=== PATIENT | male | born 1985 | race African-American/Black ===

== ENCOUNTER 2022-10-05 13:13 | Inpatient (IN) | payer MEDICAID ==
[~2022-10-05] VITALS: Ht 167.6 cm; Wt 54.2 kg
[2022-10-05] MEDS ORDERED: CEFTRIAXONE 1GM PREMIX 50 ML IV ONE (15:00)
[2022-10-05] MEDS ORDERED: SODIUM CHLORIDE 0.9% 1000ML BAG (SEPSIS BOLUS) IV ONE (15:00)
[2022-10-05 15:36] LABS: CLARITY URINE TURBID (CLEAR); COLOR URINE YELLOW (YELLOW); KETONES URINE TRACE (NEGATIVE); LEUKOCYTE ESTERASE URINE 3+ (NEGATIVE); NITRITE URINE NEGATIVE (NEGATIVE); OCCULT BLOOD URINE TRACE (NEGATIVE); PROTEIN URINE 1+ (NEGATIVE); SPECIFIC GRAVITY URINE 1.019 (1.005-1.030)
[2022-10-05 15:40] LABS: EOSINOPHILS % 4.9 % (0.0-5.0); HEMATOCRIT. 47.5 % (42.0-52.0); HEMOGLOBIN. 16.1 g/dL (14.0-18.0); LYMPHOCYTES % 29.2 % (20.0-50.0); MEAN CORPUSCULAR HEMOGLOBIN 31.4 pg (28.0-32.0); MEAN CORPUSCULAR VOLUME 92.4 fL (80.0-94.0); MEAN PLATELET VOLUME 8.5 fl (7.4-10.4); MONOCYTES % 6.9 % (2.0-8.0); PLATELET 269 x1000/uL (130-400); RED BLOOD CELL COUNT 5.14 mill/uL (4.7-6.1); RED CELL DISTRIBUTION WIDTH 13.8 % (11.6-14.6)
[2022-10-05 15:50] LABS: INR 1.3
[2022-10-05 16:02] LABS: CHLORIDE 104 mEq/L (98-107)
[2022-10-05] MEDS ORDERED: MAGNESIUM/ALUMINUM HYDROXIDE/SIMETHICONE 30ML UDC PO PRN (16:30)
[2022-10-05] MEDS ORDERED: HYDROCODONE/ACETAMINOPHEN 5/325MG TABLET PO PRN (16:30)
[2022-10-05] MEDS ORDERED: ONDANSETRON HCL 4MG/2ML INJ IV PRN (16:30)
[2022-10-05] MEDS ORDERED: DOCUSATE SODIUM 100MG CAPSULE PO PRN (16:30)
[2022-10-05] MEDS ORDERED: IPRATROPIUM/ALBUTEROL 0.5-3(2.5)MG/3ML NEB HHN PRN (16:30)
[2022-10-05] MEDS ORDERED: ACETAMINOPHEN 325MG TABLET PO PRN ×2 (16:30)
[2022-10-05] MEDS ORDERED: NA PHOS,M-B/NA PHOS,DI-BA ENEMA 118ML PR PRN (16:30)
[2022-10-05] MEDS ORDERED: CLONIDINE 0.1MG TABLET PO PRN (16:30)
[2022-10-05] MEDS: SODIUM CHLORIDE 0.9% 1,000 ML IV SCH (16:48)
[2022-10-05] MEDS: PANTOPRAZOLE SODIUM 40 MG/VIAL IV SCH (16:48)
[2022-10-05 17:35] LABS: FOLIC ACID (FOLATE) SERUM 8.6 ng/mL (>5.38)
[2022-10-05] MEDS: ENOXAPARIN 40MG/0.4ML SYR SUBCUT SCH (18:31)
[2022-10-05 21:20] VITALS: BP 131/68
[2022-10-05 21:25] VITALS: BP 131/68
[2022-10-05 21:27] LABS: *AMPHETAMINES SCREEN URINE NEGATIVE (NEGATIVE); *BARBITURATES SCREEN URINE NEGATIVE (NEGATIVE); *BENZODIAZEPINES SCREEN URINE NEGATIVE (NEGATIVE); *COCAINE SCREEN URINE NEGATIVE (NEGATIVE); CANNABINOID URINE SCREEN NEGATIVE (NEGATIVE); METHADONE URINE SCREEN NEGATIVE (NEGATIVE); OPIATES URINE SCREEN NEGATIVE (NEGATIVE); PHENCYCLIDINE URINE SCREEN NEGATIVE (NEGATIVE)
[2022-10-06] VITALS: BP 134/87
[2022-10-06 04:00] VITALS: BP 128/79
[2022-10-06 06:13] LABS: BASOPHILS % 0.7 % (0.0-2.0); EOSINOPHILS % 4.3 % (0.0-5.0); HEMATOCRIT. 43.5 % (42.0-52.0); HEMOGLOBIN. 14.8 g/dL (14.0-18.0); LYMPHOCYTES % 27.3 % (20.0-50.0); MEAN CORPUSCULAR HEMOGLOBIN 31.5 pg (28.0-32.0); MEAN CORPUSCULAR VOLUME 92.3 fL (80.0-94.0); MEAN PLATELET VOLUME 8.6 fl (7.4-10.4); MONOCYTES % 5.2 % (2.0-8.0); NEUTROPHILS % 62.5 % (40.0-76.0); PLATELET 225 x1000/uL (130-400); RED BLOOD CELL COUNT 4.71 mill/uL (4.7-6.1); RED CELL DISTRIBUTION WIDTH 13.4 % (11.6-14.6)
[2022-10-06] MEDS ORDERED: ALBU6.7H15 IH (06:43)
[2022-10-06 06:58] LABS: CHLORIDE 106 mEq/L (98-107)
[2022-10-06 08:00] VITALS: BP 115/68
[2022-10-06] MEDS: PANTOPRAZOLE SODIUM 40 MG/VIAL IV SCH (08:06)
[2022-10-06] MEDS: DOCUSATE SODIUM 100MG CAPSULE PO SCH ×2 (08:06→17:34)
[2022-10-06 12:00] VITALS: BP 120/76
[2022-10-06] MEDS: SODIUM CHLORIDE 0.9% 1,000 ML IV SCH (13:39)
[2022-10-06] MEDS ORDERED: CEFTRIAXONE 1GM PREMIX 50 ML IV SCH ×2 (15:00→16:00)
[2022-10-06 16:00] VITALS: BP 118/72
[2022-10-06] MEDS ORDERED: ALBUTEROL (0.083%) 2.5MG/3ML NEB HHN PRN (17:15)
[2022-10-06] MEDS ORDERED: IPRATROPIUM BROMIDE (0.02%) 0.5MG/2.5ML NEB HHN PRN (17:15)
[2022-10-06] MEDS ORDERED: NALOXONE HCL 0.4MG/ML VIAL IV PRN (17:15)
[2022-10-06] MEDS: ENOXAPARIN 40MG/0.4ML SYR SUBCUT SCH (17:34)
[2022-10-06 20:00] VITALS: BP 109/70
[2022-10-07] VITALS: BP 120/69
[2022-10-07 04:00] VITALS: BP 109/73
[2022-10-07 06:34] LABS: BASOPHILS % 0.6 % (0.0-2.0); EOSINOPHILS % 6.2 % (0.0-5.0); HEMATOCRIT. 43.2 % (42.0-52.0); LYMPHOCYTES % 31.6 % (20.0-50.0); MEAN CORPUSCULAR HEMOGLOBIN 31.9 pg (28.0-32.0); MEAN CORPUSCULAR VOLUME 92.1 fL (80.0-94.0); MEAN PLATELET VOLUME 8.6 fl (7.4-10.4); MONOCYTES % 6.5 % (2.0-8.0); NEUTROPHILS % 55.1 % (40.0-76.0); PLATELET 238 x1000/uL (130-400); RED BLOOD CELL COUNT 4.69 mill/uL (4.7-6.1); RED CELL DISTRIBUTION WIDTH 13.5 % (11.6-14.6)
[2022-10-07 07:01] LABS: CHLORIDE 108 mEq/L (98-107)
[2022-10-07] MEDS: DOCUSATE SODIUM 100MG CAPSULE PO SCH (08:58)
[2022-10-07] MEDS: SODIUM CHLORIDE 0.9% 1,000 ML IV SCH (08:59)
[2022-10-07] MEDS ORDERED: FAMOTIDINE 20MG TABLET PO SCH (09:00)
[2022-10-07 12:11] VITALS: BP 116/67
== END 2022-10-07 15:45 | disposition home or self-care (01) | DRG 720 ==
LOC: ER 13:13 → 7EST 15:53 → EDBEDREQ 15:56 → EDBEDREQTM 15:56 → EDBEDREQSVC 20:13 → ENRESERV 20:49
PROVIDERS: ADMIT Internal Medicine; ATTEND Internal Medicine
DX: A41.9 Sepsis, unspecified organism (principal); E46 Unspecified protein-calorie malnutrition; E78.5 Hyperlipidemia, unspecified; N39.0 Urinary tract infection, site not specified; N40.0 Benign prostatic hyperplasia without lower urinary tract symptoms; Z68.1 Body mass index [BMI] 19.9 or less, adult; G80.9 Cerebral palsy, unspecified; J45.909 Unspecified asthma, uncomplicated; N32.89 Other specified disorders of bladder; Z99.3 Dependence on wheelchair
CPT/HCPCS: 36415; 71045; 74176; 76770; 76872; 80048; 80053; 80061; 80305; 81003; 82607; 82746; 83605; 84145; 84153; 85025; 85379; 92610; 93005; 93970; 97162; 99285; C9113; J0696; J1650; J7030; G0103

== ENCOUNTER 2023-07-02 14:25 | Inpatient (IN) | payer MEDICAID ==
[2023-07-02] VITALS (13 sets, daily range): BP systolic 95–121; BP diastolic 64–83; PULSE 85–118; RESP 16; TEMP 98.4–98.7
[~2023-07-02] VITALS: Ht 170.2 cm; Wt 59.2 kg
[~2023-07-02 14:25] MED LIST: ALBU6.7H15 IH
[2023-07-02] MEDS ORDERED: METHYLPREDNISOLONE SOD SUCC 125MG/2ML (ACT-O-VIAL) IV STA (14:48)
[2023-07-02] MEDS ORDERED: IPRATROPIUM BROMIDE (0.02%) 0.5MG/2.5ML NEB HHN STA (14:48)
[2023-07-02] MEDS ORDERED: ALBUTEROL (0.083%) 2.5MG/3ML NEB HHN STA (14:48)
[2023-07-02] MEDS ORDERED: FENTANYL 2500MCG/250ML PMX 250 ML IV ONE (15:00)
[2023-07-02] MEDS ORDERED: SODIUM CHLORIDE 0.9% 1000ML BAG (SEPSIS BOLUS) IV ONE (15:00)
[2023-07-02] MEDS ORDERED: PROPOFOL 10MG/ML 100ML 100 ML IV SCH (15:00)
[2023-07-02] MEDS ORDERED: FENTANYL CITRATE/PF 50MCG/ML 2ML VIAL IM ONE (15:00)
[2023-07-02] MEDS ORDERED: PIPERACILLIN/TAZ 3.375G PREMIX 50 ML IV ONE (15:00)
[2023-07-02] MEDS ORDERED: VANCOMYCIN 1G PREMIX 200 ML IV ONE (15:00)
[2023-07-02 15:03] LABS: BASOPHILS % 0.4 % (0.0-2.0); EOSINOPHILS % 0.3 % (0.0-5.0); HEMATOCRIT. 44.5 % (42.0-52.0); HEMOGLOBIN. 14.7 g/dL (14.0-18.0); LYMPHOCYTES % 12.4 % (20.0-50.0); MEAN CORPUSCULAR HEMOGLOBIN 30.7 pg (28.0-32.0); MEAN CORPUSCULAR VOLUME 93.3 fL (80.0-94.0); MEAN PLATELET VOLUME 6.8 fl (7.4-10.4); MONOCYTES % 10.2 % (2.0-8.0); NEUTROPHILS % 76.7 % (40.0-76.0); PLATELET 321 x1000/uL (130-400); RED BLOOD CELL COUNT 4.77 mill/uL (4.7-6.1); RED CELL DISTRIBUTION WIDTH 13.9 % (11.6-14.6); WHITE BLOOD COUNT 12.6 x1000/uL (4.5-11.0)
[2023-07-02 15:16] LABS: INR 1.3; PARTIAL THROMBOPLASTIN TIME 31.3 sec (23.4-31.0); PROTHROMBIN TIME 13.9 sec (9.6-11.0)
[2023-07-02 15:34] LABS: LACTIC ACID 2.9 mmol/L (0.4-2.0)
[2023-07-02 15:35] LABS: ALANINE AMINOTRANSFERASE 165 IU/L (10-49); ALBUMIN 4.1 g/dL (3.2-4.8); ASPARTATE AMINOTRANSFERASE 163 IU/L (<34); BILIRUBIN TOTAL 0.4 mg/dL (0.1-1.0); CALCIUM 8.4 mg/dL (8.7-10.4); CARBON DIOXIDE 39 mEq/L (21-32); CHLORIDE 87 mEq/L (98-107); CREATININE 0.9 mg/dL (0.6-1.3); GLUCOSE 158 mg/dL (70-105); PROTEIN TOTAL 6.9 g/dL (6.0-8.3); SODIUM 126 mEq/L (136-145); UREA NITROGEN BLOOD 8 mg/dL (9-23)
[2023-07-02 15:37] LABS: ETHANOL BLOOD < 10 mg/dL (<10); POTASSIUM 7.9 mEq/L (3.5-5.1); TROPONIN I HIGH SENSITIVITY 632 ng/L (3.0-53)
[2023-07-02] MEDS ORDERED: SODIUM BICARBONATE 8.4% 1 MEQ/ML 50ML SYR IV ONE (15:45)
[2023-07-02] MEDS ORDERED: ASPIRIN 300MG SUPP PR ONE (15:45)
[2023-07-02] MEDS ORDERED: INSULIN REGULAR (HUMULIN R) 300UNITS/3ML VIAL IV ONE (15:45)
[2023-07-02] MEDS ORDERED: CALCIUM CHLORIDE 1GM/10ML SYR IV ONE (15:45)
[2023-07-02] MEDS ORDERED: ALBUTEROL (0.083%) 2.5MG/3ML NEB HHN ONE (15:45)
[2023-07-02] MEDS ORDERED: DEXTROSE 50% WATER 50ML SYRINGE IV ONE (15:45)
[2023-07-02 16:08] LABS: BG BASE EXCESS 0.4 mmol/L (-2.0-2.0); BG DEOXYHEMOGLOBIN 0.4 % (0.0-5.0); BG FRACTION INSPIRED OXYGEN 100; BG HCO3 ACT 27.7 mmol/L (22.0-26.0); BG METHEMOGLOBIN 0.3 % (0.0-1.5); BG OXYGEN SATURATION 99.6 % (92.0-98.5); BG OXYHEMOGLOBIN 99.3 % (94.0-97.0); BG PCO2 56.4 mmHg (35.0-45.0); BG PH 7.309 (7.350-7.450); BG PO2 475.8 mmHg (75.0-100.0); BG SAMPLE SITE LEFT RADIAL; BG VENT MODE VENT - AC/VC
[2023-07-02] MEDS: FENTANYL CITRATE 2,500 MCG in SODIUM CHLORIDE 0.9% 200 ML IV PRN ×2 (16:12→16:23)
[2023-07-02] MEDS ORDERED: MIDAZOLAM HCL 5 MG/5 ML VIAL IV ONE (16:15)
[2023-07-02 16:37] LABS: CLARITY URINE CLOUDY (CLEAR); COLOR URINE YELLOW (YELLOW); GLUCOSE URINE 1+ (NEGATIVE); KETONES URINE NEGATIVE (NEGATIVE); LEUKOCYTE ESTERASE URINE NEGATIVE (NEGATIVE); NITRITE URINE NEGATIVE (NEGATIVE); OCCULT BLOOD URINE 3+ (NEGATIVE); PH URINE 6.5 (4.5-8.0); PROTEIN URINE 3+ (NEGATIVE); SPECIFIC GRAVITY URINE 1.026 (1.005-1.030)
[2023-07-02 16:56] LABS: BACTERIA URINE 1+; RBC URINE 15-25 /hpf (0-2); SQUAMOUS EPITHELIAL CELL URINE 1+ /lpf (RARE/1+); WBC URINE 0-2 /hpf (0-2)
[2023-07-02 16:57] LABS: YEAST URINE RARE
[2023-07-02 16:58] LABS: COARSE GRANULAR CASTS URINE 0-5 /lpf
[2023-07-02] MEDS ORDERED: MORPHINE SULFATE 2 MG/ML CPJ (NOT FOR IM USE) IV PRN (17:00)
[2023-07-02] MEDS ORDERED: DOCUSATE SODIUM 100MG CAPSULE PO PRN (17:00)
[2023-07-02] MEDS ORDERED: MAGNESIUM/ALUMINUM HYDROXIDE/SIMETHICONE 30ML UDC PO PRN (17:00)
[2023-07-02] MEDS ORDERED: CLONIDINE 0.1MG TABLET PO PRN (17:00)
[2023-07-02] MEDS ORDERED: ONDANSETRON HCL 4MG/2ML INJ IV PRN (17:00)
[2023-07-02] MEDS ORDERED: GUAIFENESIN 200MG/10ML SUGAR FREE UDC PO PRN (17:00)
[2023-07-02 17:13] LABS: *AMPHETAMINES SCREEN URINE NEGATIVE (NEGATIVE); *BARBITURATES SCREEN URINE NEGATIVE (NEGATIVE); *BENZODIAZEPINES SCREEN URINE PRESUMPTIVE POSITIVE (NEGATIVE); *COCAINE SCREEN URINE NEGATIVE (NEGATIVE); CANNABINOID URINE SCREEN NEGATIVE (NEGATIVE); ECSTASY MDMA SCREEN URINE NEGATIVE (NEGATIVE); METHADONE URINE SCREEN Neg (NEGATIVE); OPIATES URINE SCREEN NEGATIVE (NEGATIVE); PHENCYCLIDINE URINE SCREEN NEGATIVE (NEGATIVE)
[2023-07-02 17:24] LABS: ALANINE AMINOTRANSFERASE 178 IU/L (10-49); ALBUMIN 3.4 g/dL (3.2-4.8); ASPARTATE AMINOTRANSFERASE 188 IU/L (<34); CARBON DIOXIDE 36 mEq/L (21-32); CHLORIDE 94 mEq/L (98-107); CREATININE 0.8 mg/dL (0.6-1.3); GLUCOSE 154 mg/dL (70-105); POTASSIUM 4.2 mEq/L (3.5-5.1); PROTEIN TOTAL 5.8 g/dL (6.0-8.3); SODIUM 132 mEq/L (136-145); UREA NITROGEN BLOOD 9 mg/dL (9-23)
[2023-07-02 17:27] LABS: BILIRUBIN TOTAL 1.5 mg/dL (0.1-1.0)
[2023-07-02 17:28] LABS: TROPONIN I HIGH SENSITIVITY 1732 ng/L (3.0-53)
[2023-07-02] MEDS ORDERED: NALOXONE HCL 0.4MG/ML VIAL IV PRN (17:30)
[2023-07-02] MEDS ORDERED: VANCOMYCIN 1G PREMIX 200 ML IV SCH (17:30)
[2023-07-02] MEDS ORDERED: IBUPROFEN 600MG TABLET PO SCH (18:00)
[2023-07-02] MEDS ORDERED: LEVETIRACETAM 500MG PREMIX 100 ML IV SCH (19:00)
[2023-07-02] MEDS ORDERED: NOREPINEPHRINE 8MG/250ML PMX 250 ML IV PRN (20:30)
[2023-07-02] MEDS ORDERED: MIDAZOLAM HCL 100 MG in SODIUM CHLORIDE 0.9% 80 ML IV PRN (20:30)
[2023-07-02] MEDS: IPRATROPIUM/ALBUTEROL 0.5-3(2.5)MG/3ML NEB HHN SCH ×2 (20:33→23:54)
[2023-07-02] MEDS: PROPOFOL 10MG/ML 100ML 100 ML IV PRN (20:57)
[2023-07-02] MEDS: LEVETIRACETAM 500MG PREMIX 100 ML IV SCH ×2 (21:00→21:53)
[2023-07-02] MEDS: ENOXAPARIN 40MG/0.4ML SYR SUBCUT SCH (21:01)
[2023-07-02] MEDS: IBUPROFEN 600MG TABLET PO SCH (21:02)
[2023-07-02] MEDS: METHYLPREDNISOLONE SOD SUCC 40MG/ML (ACT-O-VIAL) IV SCH (21:09)
[2023-07-02] MEDS: SODIUM CHLORIDE 0.9% 1,000 ML IV SCH (21:09)
[2023-07-02] MEDS: VANCOMYCIN 1G PREMIX 200 ML IV SCH (22:01)
[2023-07-02 22:10] LABS: TROPONIN I HIGH SENSITIVITY 1485 ng/L (3.0-53)
[2023-07-02] MEDS: PIPERACILLIN/TAZOBACTAM 3.375 G in DEXTROSE 5% WATER 50 ML IV SCH (23:23)
[2023-07-03] VITALS (92 sets, daily range): BP systolic 95–128; BP diastolic 53–83; PULSE 74–119; RESP 12–23; TEMP 98.8–101
[2023-07-03] MEDS: METHYLPREDNISOLONE SOD SUCC 40MG/ML (ACT-O-VIAL) IV SCH ×3 (01:35→16:05)
[2023-07-03] MEDS: ACETAMINOPHEN 650MG/20.3ML UDC PO PRN ×2 (03:09→08:06)
[2023-07-03] MEDS: SODIUM CHLORIDE 0.9% 1,000 ML IV SCH ×2 (03:09→12:53)
[2023-07-03] MEDS: PROPOFOL 10MG/ML 100ML 100 ML IV PRN ×3 (04:38→22:49)
[2023-07-03] MEDS: VANCOMYCIN 1G PREMIX 200 ML IV SCH ×3 (04:41→21:21)
[2023-07-03 05:33] LABS: HEMATOCRIT. 40.9 % (42.0-52.0); HEMOGLOBIN. 13.5 g/dL (14.0-18.0); MEAN CORPUSCULAR HEMOGLOBIN 31.4 pg (28.0-32.0); MEAN PLATELET VOLUME 7.4 fl (7.4-10.4); PLATELET 299 x1000/uL (130-400); RED CELL DISTRIBUTION WIDTH 13.8 % (11.6-14.6); WHITE BLOOD COUNT 12.4 x1000/uL (4.5-11.0)
[2023-07-03 05:38] LABS: ALANINE AMINOTRANSFERASE 159 IU/L (10-49); ALBUMIN 3.7 g/dL (3.2-4.8); ASPARTATE AMINOTRANSFERASE 136 IU/L (<34); BILIRUBIN TOTAL 0.6 mg/dL (0.1-1.0); CALCIUM 9.2 mg/dL (8.7-10.4); CARBON DIOXIDE 26 mEq/L (21-32); CHLORIDE 93 mEq/L (98-107); CHOLESTEROL 103 mg/dL (<200); CREATININE 0.7 mg/dL (0.6-1.3); GLUCOSE 151 mg/dL (70-105); HDL CHOLESTEROL 57 mg/dL (>55); LDL CHOLESTEROL 46 mg/dL (5-100); POTASSIUM 4.1 mEq/L (3.5-5.1); PROTEIN TOTAL 5.8 g/dL (6.0-8.3); SODIUM 132 mEq/L (136-145); T4 FREE 1.02 ng/dL (0.89-1.76); THYROID STIMULATING HORMONE 1.39 uIU/mL (0.55-4.78); TRIGLYCERIDE 73 mg/dL (0-150); UREA NITROGEN BLOOD 9 mg/dL (9-23)
[2023-07-03] MEDS: IBUPROFEN 600MG TABLET PO SCH ×2 (06:35→14:00)
[2023-07-03] MEDS: PIPERACILLIN/TAZOBACTAM 3.375 G in DEXTROSE 5% WATER 50 ML IV SCH ×3 (06:35→22:49)
[2023-07-03 06:37] LABS: DIFFERENTIAL COMMENT 1
[2023-07-03] MEDS: IPRATROPIUM/ALBUTEROL 0.5-3(2.5)MG/3ML NEB HHN SCH ×3 (08:05→21:39)
[2023-07-03] MEDS: ASPIRIN 81MG EC TABLET PO SCH (08:06)
[2023-07-03] MEDS: LEVETIRACETAM 500MG PREMIX 100 ML IV SCH ×2 (08:18→21:00)
[2023-07-03 10:18] LABS: BG BASE EXCESS 3.3 mmol/L (-2.0-2.0); BG CARBOXYHEMOGLOBIN 0.2 % (0.5-1.5); BG DEOXYHEMOGLOBIN 0.8 % (0.0-5.0); BG FRACTION INSPIRED OXYGEN 50; BG HCO3 ACT 27.7 mmol/L (22.0-26.0); BG METHEMOGLOBIN 0.3 % (0.0-1.5); BG OXYGEN SATURATION 99.2 % (92.0-98.5); BG OXYHEMOGLOBIN 98.7 % (94.0-97.0); BG PCO2 41.3 mmHg (35.0-45.0); BG PH 7.444 (7.350-7.450); BG PO2 202.8 mmHg (75.0-100.0); BG SAMPLE SITE RIGHT RADIAL; BG TOTAL HEMOGLOBIN 13.9 g/dL (12.0-18.0); BG VENT MODE VENT - AC/VC
[2023-07-03 13:20] LABS: PLATELET ESTIMATE NORMAL
[2023-07-03] MEDS ORDERED: PROPOFOL 10MG/ML 100ML 100 ML IV PRN (14:45)
[2023-07-03] MEDS: ENOXAPARIN 40MG/0.4ML SYR SUBCUT SCH (16:05)
[2023-07-03] MEDS: COLCHICINE 0.6MG TABLET PO SCH ×2 (16:06→21:21)
[2023-07-03] MEDS: FAMOTIDINE 20MG/2ML VIAL IV SCH (21:21)
[2023-07-04] VITALS (74 sets, daily range): BP systolic 105–141; BP diastolic 59–100; PULSE 62–165; RESP 8–19; TEMP 98.7–99.5
[2023-07-04] MEDS: SODIUM CHLORIDE 0.9% 1,000 ML IV SCH ×3 (01:00→19:01)
[2023-07-04] MEDS: IPRATROPIUM/ALBUTEROL 0.5-3(2.5)MG/3ML NEB HHN SCH ×4 (01:06→22:25)
[2023-07-04] MEDS: METHYLPREDNISOLONE SOD SUCC 40MG/ML (ACT-O-VIAL) IV SCH ×3 (01:34→17:03)
[2023-07-04] MEDS: PIPERACILLIN/TAZOBACTAM 3.375 G in DEXTROSE 5% WATER 50 ML IV SCH ×3 (05:31→22:04)
[2023-07-04] MEDS: PROPOFOL 10MG/ML 100ML 100 ML IV PRN (05:37)
[2023-07-04 05:58] LABS: HEMATOCRIT. 38.8 % (42.0-52.0); HEMOGLOBIN. 12.9 g/dL (14.0-18.0); MEAN CORPUSCULAR HEMOGLOBIN 31.4 pg (28.0-32.0); MEAN CORPUSCULAR HGB CONC 33.2 g/dL (31.0-37.0); MEAN CORPUSCULAR VOLUME 94.6 fL (80.0-94.0); MEAN PLATELET VOLUME 7.2 fl (7.4-10.4); PLATELET 258 x1000/uL (130-400); RED CELL DISTRIBUTION WIDTH 13.9 % (11.6-14.6); WHITE BLOOD COUNT 13.5 x1000/uL (4.5-11.0)
[2023-07-04 06:08] LABS: ALANINE AMINOTRANSFERASE 115 IU/L (10-49); ALBUMIN 3.5 g/dL (3.2-4.8); ASPARTATE AMINOTRANSFERASE 133 IU/L (<34); BILIRUBIN TOTAL 0.6 mg/dL (0.1-1.0); CALCIUM 8.7 mg/dL (8.7-10.4); CARBON DIOXIDE 32 mEq/L (21-32); CHLORIDE 105 mEq/L (98-107); CREATININE 0.5 mg/dL (0.6-1.3); GLUCOSE 102 mg/dL (70-105); POTASSIUM 3.6 mEq/L (3.5-5.1); PROTEIN TOTAL 5.4 g/dL (6.0-8.3); SODIUM 141 mEq/L (136-145); TRIGLYCERIDE 177 mg/dL (0-150); UREA NITROGEN BLOOD 8 mg/dL (9-23)
[2023-07-04] MEDS: VANCOMYCIN 1G PREMIX 200 ML IV SCH ×3 (06:59→22:04)
[2023-07-04 07:05] LABS: DIFFERENTIAL COMMENT 1
[2023-07-04] MEDS: LEVETIRACETAM 500MG PREMIX 100 ML IV SCH ×2 (09:08→22:04)
[2023-07-04] MEDS: ASPIRIN 81MG EC TABLET PO SCH (09:09)
[2023-07-04] MEDS: FAMOTIDINE 20MG/2ML VIAL IV SCH ×2 (09:09→22:03)
[2023-07-04] MEDS: COLCHICINE 0.6MG TABLET PO SCH ×2 (09:09→22:03)
[2023-07-04] MEDS ORDERED: LIDOCAINE HCL 1% 10 MG/ML 10ML VIAL ONE (09:15)
[2023-07-04 10:24] LABS: PLATELET ESTIMATE NORMAL
[2023-07-04 10:36] LABS: ERYTHROCYTE SEDIMENTATION RATE 13 mm/hr (0-15)
[2023-07-04] MEDS: IBUPROFEN 600MG TABLET PO SCH (14:00)
[2023-07-04] MEDS: ENOXAPARIN 40MG/0.4ML SYR SUBCUT SCH (17:04)
[2023-07-04] MEDS ORDERED: AMIODARONE 150MG/100ML PREMIX 100 ML IV NR (17:45)
[2023-07-04] MEDS ORDERED: DILTIAZEM HCL 5MG/ML 5ML VIAL IV NR (17:56)
[2023-07-04] MEDS ORDERED: AMIODARONE HCL 900 MG in DEXT 5% WATER 482 ML IV PRN (18:15)
[2023-07-05] VITALS (98 sets, daily range): BP systolic 104–139; BP diastolic 52–90; PULSE 61–94; RESP 0–22; TEMP 97.8–98.9; O2SAT 98–99
[2023-07-05] MEDS: IPRATROPIUM/ALBUTEROL 0.5-3(2.5)MG/3ML NEB HHN SCH ×4 (01:58→20:20)
[2023-07-05] MEDS: METHYLPREDNISOLONE SOD SUCC 40MG/ML (ACT-O-VIAL) IV SCH ×3 (03:08→16:51)
[2023-07-05] MEDS: SODIUM CHLORIDE 0.9% 1,000 ML IV SCH (05:00)
[2023-07-05] MEDS: PIPERACILLIN/TAZOBACTAM 3.375 G in DEXTROSE 5% WATER 50 ML IV SCH ×3 (06:00→21:13)
[2023-07-05] MEDS: VANCOMYCIN 1G PREMIX 200 ML IV SCH ×3 (06:00→21:12)
[2023-07-05] MEDS: IBUPROFEN 600MG TABLET PO SCH ×2 (06:00→14:49)
[2023-07-05 06:05] LABS: BASOPHILS % 0.1 % (0.0-2.0); HEMATOCRIT. 38.4 % (42.0-52.0); HEMOGLOBIN. 12.6 g/dL (14.0-18.0); LYMPHOCYTES % 14.4 % (20.0-50.0); MEAN CORPUSCULAR HEMOGLOBIN 30.7 pg (28.0-32.0); MEAN CORPUSCULAR HGB CONC 32.9 g/dL (31.0-37.0); MEAN CORPUSCULAR VOLUME 93.1 fL (80.0-94.0); MEAN PLATELET VOLUME 7.1 fl (7.4-10.4); MONOCYTES % 7.7 % (2.0-8.0); NEUTROPHILS % 77.8 % (40.0-76.0); PLATELET 235 x1000/uL (130-400); RED BLOOD CELL COUNT 4.12 mill/uL (4.7-6.1); WHITE BLOOD COUNT 11.9 x1000/uL (4.5-11.0)
[2023-07-05 06:45] LABS: ALANINE AMINOTRANSFERASE 91 IU/L (10-49); ALBUMIN 3.4 g/dL (3.2-4.8); ASPARTATE AMINOTRANSFERASE 85 IU/L (<34); BILIRUBIN TOTAL 0.8 mg/dL (0.1-1.0); CALCIUM 8.5 mg/dL (8.7-10.4); CARBON DIOXIDE 30 mEq/L (21-32); CHLORIDE 107 mEq/L (98-107); CREATININE 0.5 mg/dL (0.6-1.3); GLUCOSE 118 mg/dL (70-105); POTASSIUM 3.4 mEq/L (3.5-5.1); PROTEIN TOTAL 5.7 g/dL (6.0-8.3); SODIUM 143 mEq/L (136-145); UREA NITROGEN BLOOD 11 mg/dL (9-23)
[2023-07-05] MEDS ORDERED: KCL 20MEQ/100ML PREMIX 100 ML IV NR (08:00)
[2023-07-05] MEDS: ASPIRIN 81MG EC TABLET PO SCH (08:07)
[2023-07-05] MEDS: COLCHICINE 0.6MG TABLET PO SCH ×2 (08:07→21:12)
[2023-07-05] MEDS: FAMOTIDINE 20MG/2ML VIAL IV SCH ×2 (08:07→21:12)
[2023-07-05] MEDS: LEVETIRACETAM 500MG PREMIX 100 ML IV SCH ×2 (08:07→21:12)
[2023-07-05 11:14] LABS: BG BASE EXCESS 2.1 mmol/L (-2.0-2.0); BG CARBOXYHEMOGLOBIN 0.1 % (0.5-1.5); BG DEOXYHEMOGLOBIN 0.8 % (0.0-5.0); BG FRACTION INSPIRED OXYGEN 40; BG HCO3 ACT 23.3 mmol/L (22.0-26.0); BG METHEMOGLOBIN 0.3 % (0.0-1.5); BG OXYGEN SATURATION 99.2 % (92.0-98.5); BG OXYHEMOGLOBIN 98.8 % (94.0-97.0); BG PCO2 27.4 mmHg (35.0-45.0); BG PH 7.547 (7.350-7.450); BG PO2 185.4 mmHg (75.0-100.0); BG SAMPLE SITE LEFT RADIAL; BG TOTAL HEMOGLOBIN 14.3 g/dL (12.0-18.0); BG VENT MODE VENT - CPAP
[2023-07-05] MEDS: ENOXAPARIN 40MG/0.4ML SYR SUBCUT SCH (16:50)
[2023-07-06] VITALS (38 sets, daily range): BP systolic 103–140; BP diastolic 59–91; PULSE 65–94; RESP 12–26; TEMP 97.2–99; O2SAT 96–99
[2023-07-06] MEDS: METHYLPREDNISOLONE SOD SUCC 40MG/ML (ACT-O-VIAL) IV SCH ×3 (01:10→16:17)
[2023-07-06] MEDS: IPRATROPIUM/ALBUTEROL 0.5-3(2.5)MG/3ML NEB HHN SCH ×4 (02:24→21:18)
[2023-07-06 05:29] LABS: HEMATOCRIT. 40.8 % (42.0-52.0); HEMOGLOBIN. 13.4 g/dL (14.0-18.0); MEAN CORPUSCULAR HEMOGLOBIN 30.9 pg (28.0-32.0); MEAN CORPUSCULAR HGB CONC 32.9 g/dL (31.0-37.0); MEAN PLATELET VOLUME 7.4 fl (7.4-10.4); PLATELET 257 x1000/uL (130-400); RED BLOOD CELL COUNT 4.34 mill/uL (4.7-6.1); RED CELL DISTRIBUTION WIDTH 13.7 % (11.6-14.6); WHITE BLOOD COUNT 10.5 x1000/uL (4.5-11.0)
[2023-07-06] MEDS: PIPERACILLIN/TAZOBACTAM 3.375 G in DEXTROSE 5% WATER 50 ML IV SCH ×3 (06:07→22:28)
[2023-07-06] MEDS: VANCOMYCIN 1G PREMIX 200 ML IV SCH ×3 (06:08→22:28)
[2023-07-06 06:20] LABS: ALANINE AMINOTRANSFERASE 79 IU/L (10-49); ALBUMIN 3.6 g/dL (3.2-4.8); ASPARTATE AMINOTRANSFERASE 49 IU/L (<34); BILIRUBIN TOTAL 0.6 mg/dL (0.1-1.0); CALCIUM 8.6 mg/dL (8.7-10.4); CARBON DIOXIDE 34 mEq/L (21-32); CHLORIDE 105 mEq/L (98-107); CREATININE 0.4 mg/dL (0.6-1.3); GLUCOSE 109 mg/dL (70-105); POTASSIUM 3.8 mEq/L (3.5-5.1); PROTEIN TOTAL 6.2 g/dL (6.0-8.3); SODIUM 142 mEq/L (136-145); UREA NITROGEN BLOOD 8 mg/dL (9-23); VANCOMYCIN TROUGH 14.8 ug/mL (5.0-10.0)
[2023-07-06 07:21] LABS: DIFFERENTIAL COMMENT 1
[2023-07-06] MEDS: LEVETIRACETAM 500MG PREMIX 100 ML IV SCH ×2 (08:25→21:44)
[2023-07-06] MEDS: COLCHICINE 0.6MG TABLET PO SCH ×2 (08:26→20:07)
[2023-07-06] MEDS: FAMOTIDINE 20MG/2ML VIAL IV SCH ×2 (08:26→20:07)
[2023-07-06] MEDS: ASPIRIN 81MG EC TABLET PO SCH (08:26)
[2023-07-06] MEDS ORDERED: FLUT1DIS3 INH (10:49)
[2023-07-06] MEDS ORDERED: IPRA3AMP9 NEB (10:49)
[2023-07-06] MEDS: IBUPROFEN 600MG TABLET PO SCH (13:54)
[2023-07-06] MEDS: BUDESONIDE 0.5MG/2ML NEB HHN SCH (14:30)
[2023-07-06] MEDS: ENOXAPARIN 40MG/0.4ML SYR SUBCUT SCH (16:17)
[2023-07-06 17:19] LABS: PLATELET ESTIMATE NORMAL
[2023-07-07] VITALS (10 sets, daily range): BP systolic 116–141; BP diastolic 65–88; PULSE 65–98; RESP 15–20; TEMP 97.5–99.1; O2SAT 97–99
[2023-07-07] MEDS: IPRATROPIUM/ALBUTEROL 0.5-3(2.5)MG/3ML NEB HHN SCH ×6 (00:06→21:23)
[2023-07-07] MEDS: BUDESONIDE 0.5MG/2ML NEB HHN SCH ×3 (00:06→21:24)
[2023-07-07] MEDS: METHYLPREDNISOLONE SOD SUCC 40MG/ML (ACT-O-VIAL) IV SCH ×3 (01:10→18:22)
[2023-07-07] MEDS: IBUPROFEN 600MG TABLET PO SCH ×3 (06:00→21:05)
[2023-07-07] MEDS: VANCOMYCIN 1G PREMIX 200 ML IV SCH ×3 (06:16→21:04)
[2023-07-07] MEDS: PIPERACILLIN/TAZOBACTAM 3.375 G in DEXTROSE 5% WATER 50 ML IV SCH ×2 (06:21→14:00)
[2023-07-07 07:37] LABS: HEMATOCRIT. 41.8 % (42.0-52.0); HEMOGLOBIN. 13.9 g/dL (14.0-18.0); MEAN CORPUSCULAR HEMOGLOBIN 31.3 pg (28.0-32.0); MEAN CORPUSCULAR HGB CONC 33.3 g/dL (31.0-37.0); MEAN CORPUSCULAR VOLUME 94.1 fL (80.0-94.0); MEAN PLATELET VOLUME 7.3 fl (7.4-10.4); PLATELET 254 x1000/uL (130-400); RED BLOOD CELL COUNT 4.44 mill/uL (4.7-6.1); RED CELL DISTRIBUTION WIDTH 13.7 % (11.6-14.6); WHITE BLOOD COUNT 10.6 x1000/uL (4.5-11.0)
[2023-07-07 07:57] LABS: DIFFERENTIAL COMMENT 1
[2023-07-07 08:09] LABS: ALANINE AMINOTRANSFERASE 62 IU/L (10-49); ALBUMIN 3.8 g/dL (3.2-4.8); ASPARTATE AMINOTRANSFERASE 34 IU/L (<34); BILIRUBIN TOTAL 0.5 mg/dL (0.1-1.0); CARBON DIOXIDE 37 mEq/L (21-32); CHLORIDE 101 mEq/L (98-107); CREATININE 0.5 mg/dL (0.6-1.3); GLUCOSE 112 mg/dL (70-105); POTASSIUM 4.2 mEq/L (3.5-5.1); SODIUM 141 mEq/L (136-145); UREA NITROGEN BLOOD 8 mg/dL (9-23)
[2023-07-07] MEDS: LEVETIRACETAM 500MG PREMIX 100 ML IV SCH ×2 (09:38→20:05)
[2023-07-07] MEDS: COLCHICINE 0.6MG TABLET PO SCH ×2 (09:38→20:14)
[2023-07-07] MEDS: FAMOTIDINE 20MG/2ML VIAL IV SCH ×2 (09:38→20:05)
[2023-07-07] MEDS: ASPIRIN 81MG EC TABLET PO SCH (09:38)
[2023-07-07 11:41] LABS: BG BASE EXCESS 6.2 mmol/L (-2.0-2.0); BG CARBOXYHEMOGLOBIN 0.6 % (0.5-1.5); BG DEOXYHEMOGLOBIN 3.9 % (0.0-5.0); BG FRACTION INSPIRED OXYGEN 28; BG HCO3 ACT 33.9 mmol/L (22.0-26.0); BG METHEMOGLOBIN 0.3 % (0.0-1.5); BG OXYGEN SATURATION 96.1 % (92.0-98.5); BG OXYHEMOGLOBIN 95.2 % (94.0-97.0); BG PCO2 61.7 mmHg (35.0-45.0); BG PH 7.358 (7.350-7.450); BG PO2 80.1 mmHg (75.0-100.0); BG SAMPLE SITE LEFT RADIAL; BG TOTAL HEMOGLOBIN 15.5 g/dL (12.0-18.0); BG VENT MODE NASAL CANNULA
[2023-07-07 13:50] LABS: PLATELET ESTIMATE NORMAL
[2023-07-07] MEDS: ENOXAPARIN 40MG/0.4ML SYR SUBCUT SCH (18:22)
[2023-07-08] VITALS (12 sets, daily range): BP systolic 0–135; BP diastolic 66–91; PULSE 80–99; RESP 17–27; TEMP 98–99.3; O2SAT 98–99
[2023-07-08] MEDS: METHYLPREDNISOLONE SOD SUCC 40MG/ML (ACT-O-VIAL) IV SCH ×3 (00:19→17:17)
[2023-07-08] MEDS: IPRATROPIUM/ALBUTEROL 0.5-3(2.5)MG/3ML NEB HHN SCH ×5 (00:57→15:59)
[2023-07-08] MEDS: IBUPROFEN 600MG TABLET PO SCH ×3 (05:26→21:13)
[2023-07-08] MEDS: FAMOTIDINE 20MG/2ML VIAL IV SCH ×2 (09:30→21:13)
[2023-07-08] MEDS: COLCHICINE 0.6MG TABLET PO SCH ×2 (09:31→21:12)
[2023-07-08] MEDS: ASPIRIN 81MG EC TABLET PO SCH (09:31)
[2023-07-08] MEDS: LEVETIRACETAM 500MG PREMIX 100 ML IV SCH ×2 (09:31→21:13)
[2023-07-08 11:57] LABS: BG BASE EXCESS 8.1 mmol/L (-2.0-2.0); BG CARBOXYHEMOGLOBIN 0.5 % (0.5-1.5); BG FRACTION INSPIRED OXYGEN 28; BG HCO3 ACT 36.9 mmol/L (22.0-26.0); BG METHEMOGLOBIN 0.4 % (0.0-1.5); BG OXYHEMOGLOBIN 97.1 % (94.0-97.0); BG PCO2 69.5 mmHg (35.0-45.0); BG PH 7.343 (7.350-7.450); BG PO2 105.9 mmHg (75.0-100.0); BG SAMPLE SITE RIGHT RADIAL; BG TOTAL HEMOGLOBIN 15.7 g/dL (12.0-18.0); BG VENT MODE NASAL CANNULA
[2023-07-08] MEDS: ENOXAPARIN 40MG/0.4ML SYR SUBCUT SCH (17:18)
[2023-07-09] VITALS (7 sets, daily range): BP systolic 100–133; BP diastolic 71–89; PULSE 70–91; RESP 22–29; TEMP 98.8–99.1; O2SAT 96
[2023-07-09] MEDS: METHYLPREDNISOLONE SOD SUCC 40MG/ML (ACT-O-VIAL) IV SCH ×4 (00:42→23:34)
[2023-07-09] MEDS: IBUPROFEN 600MG TABLET PO SCH ×3 (05:50→21:46)
[2023-07-09] MEDS: FAMOTIDINE 20MG/2ML VIAL IV SCH ×2 (08:56→21:46)
[2023-07-09] MEDS: ASPIRIN 81MG EC TABLET PO SCH (08:56)
[2023-07-09] MEDS: LEVETIRACETAM 500MG PREMIX 100 ML IV SCH ×2 (08:56→21:46)
[2023-07-09] MEDS: COLCHICINE 0.6MG TABLET PO SCH ×2 (08:56→21:46)
[2023-07-09 09:03] LABS: BG BASE EXCESS 9.5 mmol/L (-2.0-2.0); BG CARBOXYHEMOGLOBIN 0.8 % (0.5-1.5); BG FRACTION INSPIRED OXYGEN 40; BG HCO3 ACT 37.3 mmol/L (22.0-26.0); BG METHEMOGLOBIN 0.4 % (0.0-1.5); BG OXYHEMOGLOBIN 97.8 % (94.0-97.0); BG PH 7.383 (7.350-7.450); BG PO2 139.8 mmHg (75.0-100.0); BG SAMPLE SITE RIGHT RADIAL; BG TOTAL HEMOGLOBIN 14.9 g/dL (12.0-18.0); BG VENT MODE MASK - BIPAP
[2023-07-09 12:12] LABS: ALANINE AMINOTRANSFERASE 36 IU/L (10-49); ALBUMIN 3.6 g/dL (3.2-4.8); ASPARTATE AMINOTRANSFERASE 16 IU/L (<34); BILIRUBIN TOTAL 0.6 mg/dL (0.1-1.0); CALCIUM 8.7 mg/dL (8.7-10.4); CARBON DIOXIDE 31 mEq/L (21-32); CHLORIDE 100 mEq/L (98-107); CREATININE 0.4 mg/dL (0.6-1.3); GLUCOSE 139 mg/dL (70-105); POTASSIUM 3.6 mEq/L (3.5-5.1); PROTEIN TOTAL 5.6 g/dL (6.0-8.3); SODIUM 135 mEq/L (136-145); UREA NITROGEN BLOOD 11 mg/dL (9-23)
[2023-07-09 12:15] LABS: BG BASE EXCESS 6.9 mmol/L (-2.0-2.0); BG CARBOXYHEMOGLOBIN 0.4 % (0.5-1.5); BG DEOXYHEMOGLOBIN 4.8 % (0.0-5.0); BG HCO3 ACT 32.5 mmol/L (22.0-26.0); BG METHEMOGLOBIN 0.3 % (0.0-1.5); BG OXYGEN SATURATION 95.2 % (92.0-98.5); BG OXYHEMOGLOBIN 94.5 % (94.0-97.0); BG PCO2 49.7 mmHg (35.0-45.0); BG PH 7.434 (7.350-7.450); BG PO2 71.4 mmHg (75.0-100.0); BG SAMPLE SITE RIGHT RADIAL; BG TOTAL HEMOGLOBIN 15.1 g/dL (12.0-18.0); BG VENT MODE ROOM AIR
[2023-07-09 12:16] LABS: HEMOGLOBIN 13.6 g/dL (14.0-18.0); MEAN CORPUSCULAR HEMOGLOBIN 30.1 pg (28.0-32.0); MEAN CORPUSCULAR HGB CONC 31.6 g/dL (31.0-37.0); MEAN CORPUSCULAR VOLUME 95.3 fL (80.0-94.0); PLATELET 256 x1000/uL (130-400); RED BLOOD CELL COUNT 4.51 mill/uL (4.7-6.1); RED CELL DISTRIBUTION WIDTH 13.5 % (11.6-14.6); WHITE BLOOD COUNT 11.3 x1000/uL (4.5-11.0)
[2023-07-09] MEDS: ENOXAPARIN 40MG/0.4ML SYR SUBCUT SCH (18:04)
[2023-07-09] MEDS: IPRATROPIUM/ALBUTEROL 0.5-3(2.5)MG/3ML NEB HHN SCH (20:56)
[2023-07-10] VITALS (12 sets, daily range): BP systolic 115–139; BP diastolic 70–88; PULSE 76–112; RESP 15–22; TEMP 97.6–99.1; O2SAT 96–98
[2023-07-10] MEDS: IPRATROPIUM/ALBUTEROL 0.5-3(2.5)MG/3ML NEB HHN SCH ×6 (00:47→20:45)
[2023-07-10] MEDS: IBUPROFEN 600MG TABLET PO SCH ×3 (06:08→21:36)
[2023-07-10] MEDS: COLCHICINE 0.6MG TABLET PO SCH ×2 (08:22→21:36)
[2023-07-10] MEDS: ASPIRIN 81MG EC TABLET PO SCH (08:22)
[2023-07-10] MEDS: FAMOTIDINE 20MG/2ML VIAL IV SCH ×2 (08:22→21:00)
[2023-07-10] MEDS: METHYLPREDNISOLONE SOD SUCC 40MG/ML (ACT-O-VIAL) IV SCH ×3 (08:22→21:37)
[2023-07-10] MEDS: LEVETIRACETAM 500MG PREMIX 100 ML IV SCH (08:22)
[2023-07-10 10:42] LABS: BG BASE EXCESS 4.6 mmol/L (-2.0-2.0); BG CARBOXYHEMOGLOBIN 0.9 % (0.5-1.5); BG DEOXYHEMOGLOBIN 4.6 % (0.0-5.0); BG FRACTION INSPIRED OXYGEN 21; BG HCO3 ACT 30.2 mmol/L (22.0-26.0); BG METHEMOGLOBIN 0.4 % (0.0-1.5); BG OXYGEN SATURATION 95.3 % (92.0-98.5); BG OXYHEMOGLOBIN 94.1 % (94.0-97.0); BG PCO2 48.1 mmHg (35.0-45.0); BG PH 7.416 (7.350-7.450); BG PO2 73.5 mmHg (75.0-100.0); BG SAMPLE SITE LEFT RADIAL; BG TOTAL HEMOGLOBIN 15.5 g/dL (12.0-18.0); BG VENT MODE ROOM AIR
[2023-07-10] MEDS: ENOXAPARIN 40MG/0.4ML SYR SUBCUT SCH (21:18)
[2023-07-10] MEDS: LEVETIRACETAM 500MG TABLET PO SCH (21:36)
[2023-07-11] VITALS (10 sets, daily range): BP systolic 121–125; BP diastolic 74–84; PULSE 101–122; RESP 15–31; TEMP 98.4–98.9; O2SAT 94–100
[2023-07-11] MEDS: IPRATROPIUM/ALBUTEROL 0.5-3(2.5)MG/3ML NEB HHN SCH ×5 (00:39→12:51)
[2023-07-11] MEDS: IBUPROFEN 600MG TABLET PO SCH ×3 (07:15→22:01)
[2023-07-11] MEDS: LEVETIRACETAM 500MG TABLET PO SCH ×2 (08:45→21:56)
[2023-07-11] MEDS: ASPIRIN 81MG EC TABLET PO SCH (08:45)
[2023-07-11] MEDS: COLCHICINE 0.6MG TABLET PO SCH ×2 (08:45→21:56)
[2023-07-11] MEDS: PREDNISONE 20MG TABLET PO SCH ×2 (08:47→17:54)
[2023-07-11] MEDS: FAMOTIDINE 20MG/2ML VIAL IV SCH (08:47)
[2023-07-11] MEDS: IPRATROPIUM/ALBUTEROL 0.5-3(2.5)MG/3ML NEB HHN PRN ×2 (11:59→16:14)
[2023-07-11] MEDS: ENOXAPARIN 40MG/0.4ML SYR SUBCUT SCH (17:54)
[2023-07-11] MEDS: FAMOTIDINE 20MG TABLET PO SCH (21:56)
[2023-07-12] VITALS: BP 125/74; PULSE 95; RESP 14; TEMP 99.2
[2023-07-12 04:00] VITALS: BP 123/74; PULSE 99; RESP 20; TEMP 98.1
[2023-07-12] MEDS: IBUPROFEN 600MG TABLET PO SCH ×3 (06:27→22:00)
[2023-07-12 08:00] VITALS: BP 125/84; PULSE 107; RESP 15; TEMP 98.9
[2023-07-12] MEDS: PREDNISONE 20MG TABLET PO SCH ×2 (08:10→17:14)
[2023-07-12] MEDS: LEVETIRACETAM 500MG TABLET PO SCH ×2 (08:10→20:54)
[2023-07-12] MEDS: ASPIRIN 81MG EC TABLET PO SCH (08:10)
[2023-07-12] MEDS: COLCHICINE 0.6MG TABLET PO SCH ×2 (08:20→20:54)
[2023-07-12 12:00] VITALS: BP 127/89; PULSE 99; RESP 24; TEMP 97.8
[2023-07-12] MEDS ORDERED: NALOXONE HCL 0.4MG/ML VIAL IV PRN (14:15)
[2023-07-12 16:00] VITALS: BP 128/90; PULSE 106; RESP 24; TEMP 97.2
[2023-07-12] MEDS: ENOXAPARIN 40MG/0.4ML SYR SUBCUT SCH (17:14)
[2023-07-12 20:00] VITALS: BP 119/71; PULSE 126; RESP 21; TEMP 99.2
[2023-07-12] MEDS: FAMOTIDINE 20MG TABLET PO SCH (20:54)
[2023-07-13] VITALS: BP 125/86; PULSE 94; RESP 18; TEMP 98.9
[2023-07-13 03:51] VITALS: BP 121/87; PULSE 107; RESP 21; TEMP 98.1
[2023-07-13] MEDS: IBUPROFEN 600MG TABLET PO SCH (06:16)
[2023-07-13 08:00] VITALS: BP 128/87; PULSE 112; RESP 19; TEMP 99.1
[2023-07-13] MEDS: COLCHICINE 0.6MG TABLET PO SCH (08:35)
[2023-07-13] MEDS: LEVETIRACETAM 500MG TABLET PO SCH (08:35)
[2023-07-13] MEDS: PREDNISONE 20MG TABLET PO SCH (08:35)
[2023-07-13] MEDS: ASPIRIN 81MG EC TABLET PO SCH (08:35)
[2023-07-13] MEDS ORDERED: IPRATROPIUM/ALBUTEROL 0.5-3(2.5)MG/3ML NEB HHN SCH (12:00)
== END 2023-07-13 11:55 | disposition home or self-care (01) | DRG 133 ==
LOC: ER 14:36 → EDBEDREQ 15:36 → MICUSO 16:05 → 8WST 07-06 11:26 → MICUSO 07-06 11:33 → 3WST 07-06 17:10
PROVIDERS: ADMIT Hospitalist; ATTEND Hospitalist
PROC: 5A1945Z Respiratory Ventilation, 24-96 Consecutive Hours (ICD-10-PCS; principal; 2023-07-02)
PROC: 0BH17EZ Insertion of Endotracheal Airway into Trachea, Via Natural or Artificial Opening (ICD-10-PCS; 2023-07-02)
PROC: 02H633Z Insertion of Infusion Device into Right Atrium, Percutaneous Approach (ICD-10-PCS; 2023-07-04)
PROC: B548ZZA Ultrasonography of Superior Vena Cava, Guidance (ICD-10-PCS; 2023-07-04)
PROC: 5A09357 Assistance with Respiratory Ventilation, Less than 24 Consecutive Hours, Continuous Positive Airway Pressure (ICD-10-PCS; 2023-07-09)
DX: J96.01 Acute respiratory failure with hypoxia (principal); G93.41 Metabolic encephalopathy; E87.1 Hypo-osmolality and hyponatremia; E87.29 Other acidosis; I24.89 Other forms of acute ischemic heart disease; E87.20 Acidosis, unspecified; I31.9 Disease of pericardium, unspecified; G80.9 Cerebral palsy, unspecified; I48.91 Unspecified atrial fibrillation; D72.829 Elevated white blood cell count, unspecified; J45.901 Unspecified asthma with (acute) exacerbation; J96.02 Acute respiratory failure with hypercapnia; I51.4 Myocarditis, unspecified; R56.9 Unspecified convulsions; E87.5 Hyperkalemia; R73.9 Hyperglycemia, unspecified; Z79.82 Long term (current) use of aspirin; Z79.899 Other long term (current) drug therapy
CPT/HCPCS: 31500; 36415; 36573; 36600; 71045; 80053; 80061; 80202; 80305; 80320; 81003; 82375; 82805; 83605; 83880; 84439; 84443; 84478; 84481; 84484; 85025; 85027; 85651; 92610; 93005; 93306; 93970; 93971; 94002; 94003; 94640; 94644; 99291; A6261; C1725; J0282; J1650; J1815; J1953; J2250; J2270; J2543; J2704; J2920; J2930; J3010; J3370; J3480; J3490; J7030; J7050; J7060; J7512; J7626; G0480